=== PATIENT | female | born 1950 | race Caucasian/White ===

== ENCOUNTER 2017-12-02 10:07 | Outpatient (CLI) | payer BC, MEDICARE | END 2017-12-02 10:08 | disposition home or self-care (01) | LOC: BICMAMMO 10:07 | PROVIDERS: ATTEND Internal Medicine | DX: Z12.31 Encounter for screening mammogram for malignant neoplasm of breast (principal); M85.859 Other specified disorders of bone density and structure, unspecified thigh; Z78.0 Asymptomatic menopausal state | CPT/HCPCS: 77063; 77067; 77080 ==

== ENCOUNTER 2019-05-23 13:09 | Outpatient (CLI) | payer BC, MEDICARE ==
--- NOTE | 2019-05-23 16:16 | MMO ---
Bilateral MAMMO Bilat Screen [facility]. CLINICAL HISTORY: Patient is 69 years old and is seen for screening. The patient has no family history of breast cancer. The patient has no personal history of cancer. VIEWS: The views performed were: bilateral craniocaudal with tomosynthesis and bilateral mediolateral oblique with tomosynthesis. FILMS COMPARED: The present examination has been compared to prior imaging studies performed at [facility] on 06/29/2013, 11/27/2014, 08/05/2016 and 12/02/2017. This study has been interpreted with the assistance of computer-aided detection. MAMMOGRAM FINDINGS: There are scattered fibroglandular densities. Benign calcifications are noted bilaterally. There are no suspicious masses, suspicious calcifications, or new areas of architectural distortion. IMPRESSION: THERE IS NO MAMMOGRAPHIC EVIDENCE OF MALIGNANCY. A ROUTINE FOLLOW-UP MAMMOGRAM IN 1 YEAR IS RECOMMENDED. THE RESULTS OF THIS EXAM WERE SENT TO THE PATIENT. ACR BI-RADS Category 2 - Benign finding MAMMOGRAPHY NOTE: 1. A negative mammogram report should not delay a biopsy if a dominant of clinically suspicious mass is present. 2. Approximately 10% to 15% of breast cancers are not detected by mammography. 3. Adenosis and dense breasts may obscure an underlying neoplasm. Reported by: JOEY MCBRIDE MD Electonically Signed: [id number]
== END 2019-05-23 13:10 | disposition home or self-care (01) ==
LOC: BICMAMMO 13:09
PROVIDERS: ATTEND Internal Medicine
DX: Z12.31 Encounter for screening mammogram for malignant neoplasm of breast (principal)
CPT/HCPCS: 77063; 77067

== ENCOUNTER 2019-11-14 12:29 | Outpatient (CLI) | payer BC, MEDICARE ==
--- NOTE | 2019-11-14 14:09 | MRI ---
MRI CERVICAL SPINE WITHOUT CONTRAST: HISTORY: Acute cervical radiculopathy. COMPARISON: None. FINDINGS: Appropriate T1 marrow signal intensity of the cervical vertebrae. Cervical spine vertebral body heig hts are maintained and there is no fracture. No significant STIR hyperintensity to suggest vertebral body edema or ligamentous injury. Visualized brain parenchyma, cervicomedullary junction, cervical cord and the upper thoracic cord are normal size and signal intensity Spondylolisthesis: C2-C3: 2 mm of anterolisthesis. C4-C5: 2.3 mm of retrolisthesis. C5-C6: 1.5 mm of retrolisthesis. C7-T1: 1.9 mm of anterolisthesis. C2-C3: No significant central canal stenosis. Mild right neural foraminal narrowing due to uncoverteb ral and facet hypertrophy. Patent left neural foramen. C3-C4: Broad-based disc-osteophyte, somewhat the thecal sac. Subarachnoid space is nearly effaced. Mi nimal deformity of the cervical cord. Mild central canal stenosis. Bilaterally, neural foramina are patent. C4-C5: Disc desiccation with moderate to severe loss of disc space height. Broad-based disc-osteophyt e complex abuts the thecal sac. Subarachnoid space is effaced. Minimal flattening the ventral cord. Mild central canal stenosis. Mild to moderate bilateral foramina due to uncovertebral hypertrophy. C5-C6: Disc desiccation with moderate to severe loss of disc space height. Broad-based disc-osteophyt e complex abuts the thecal sac. Subarachnoid space is effaced. There is moderate central canal stenosis. Moderate to severe bilateral neural foraminal narrowing. C6-C7: Disc desiccation with moderate to severe loss of disc space height. Broad-based disc-osteophyt e complex abuts the thecal sac. Mild central canal stenosis. Mild bilateral neural foraminal narrowing. C7-T1: Disc desiccation without significant loss of disc space height. No significant central canal s tenosis. Right neural foramen is patent. Mild left neural foraminal narrowing. IMPRESSION: Multilevel degenerative changes of the cervical spine as detailed above. Transcribed Date/Time: 11/14/2019 2:29 PM
== END 2019-11-14 12:30 | disposition home or self-care (01) ==
LOC: SCSMRI 12:29
PROVIDERS: ATTEND Anesthesiology Pain Medicine
DX: M47.22 Other spondylosis with radiculopathy, cervical region (principal)
CPT/HCPCS: 72141

== ENCOUNTER 2020-08-06 10:48 | Outpatient (CLI) | payer BC, MEDICARE | END 2020-08-06 10:49 | disposition home or self-care (01) | LOC: BICMAMMO 10:48 | PROVIDERS: ATTEND Internal Medicine | DX: Z12.31 Encounter for screening mammogram for malignant neoplasm of breast (principal) | CPT/HCPCS: 77063; 77067 ==

== ENCOUNTER 2021-11-14 12:56 | Outpatient (CLI) | payer BC, MEDICARE | END 2021-11-14 12:57 | disposition home or self-care (01) | LOC: BICMAMMO 12:56 | PROVIDERS: ATTEND Internal Medicine | DX: Z12.31 Encounter for screening mammogram for malignant neoplasm of breast (principal) | CPT/HCPCS: 77063; 77067 ==

== ENCOUNTER 2023-07-23 11:01 | Outpatient (CLI) | payer BC, MEDICARE | END 2023-07-23 11:02 | disposition home or self-care (01) | LOC: BICMAMMO 11:01 | PROVIDERS: ATTEND Physician Assistant | DX: Z12.31 Encounter for screening mammogram for malignant neoplasm of breast (principal) | CPT/HCPCS: 77063; 77067 ==

== ENCOUNTER 2024-05-25 18:26 | Emergency (ER) | payer BC, MEDICARE ==
[2024-05-25] MEDS ORDERED: traMADol HCl 50 MG TAB ONE (19:42)
== END 2024-05-25 21:10 | disposition home or self-care (01) ==
LOC: ERS 18:26
DX: S09.90XA Unspecified injury of head, initial encounter (principal); I10 Essential (primary) hypertension; Z79.899 Other long term (current) drug therapy; W19.XXXA Unspecified fall, initial encounter
CPT/HCPCS: 70450; 72125